=== PATIENT | male | born 1965 | race Caucasian/White ===

== ENCOUNTER 2024-11-08 15:37 | Outpatient (CLI) | payer BC | END 2024-11-08 15:38 | disposition home or self-care (01) | LOC: SCSRAD 15:37 | PROVIDERS: ATTEND Family Medicine | DX: G57.02 Lesion of sciatic nerve, left lower limb (principal); M47.816 Spondylosis without myelopathy or radiculopathy, lumbar region | CPT/HCPCS: 72120 ==

== ENCOUNTER 2024-12-16 09:16 | Outpatient (CLI) | payer MEDICARE, OTHER | END 2024-12-16 09:17 | disposition home or self-care (01) | LOC: SCSMRI 09:16 | PROVIDERS: ATTEND Family Medicine | DX: M51.16 Intervertebral disc disorders with radiculopathy, lumbar region (principal); M48.07 Spinal stenosis, lumbosacral region; M48.061 Spinal stenosis, lumbar region without neurogenic claudication | CPT/HCPCS: 72148 ==